=== PATIENT | male | born 1990 | race American Indian/Alaskan Native ===

== ENCOUNTER 2016-12-10 16:38 | Emergency (ER) | payer SELFPAY ==
[2016-12-10 18:06] VITALS: BP 124/79
[2016-12-10] MEDS ORDERED: TYLENOL ONE (18:06)
[2016-12-10] MEDS ORDERED: TYLENOL PO ONE (18:07)
== END 2016-12-10 20:25 | disposition left against medical advice (07) ==
LOC: ED 16:38
DX: R05 Cough (principal); M79.1 Myalgia; R53.83 Other fatigue; Z53.21 Procedure and treatment not carried out due to patient leaving prior to being seen by health care provider